=== PATIENT | male | born 1995 | race African-American/Black ===

== ENCOUNTER 2024-08-05 10:02 | Emergency (ER) | payer OTHER, SELFPAY ==
[2024-08-05 10:09] VITALS: BP 112/50; PULSE 69; RESP 18; TEMP 36.4; O2SAT 98; BMI 34.3
--- NOTE | 2024-08-05 11:23 | ED.WOUNDLAC ---
HPI - Wound/Laceration General Chief Complaint: Wound/Laceration Stated Complaint: Work injury last week Time Seen by Provider: 08/05/24 10:30 Source: patient and RN notes reviewed Mode of arrival: ambulatory Limitations: no limitations History of Present Illness ED Provider: Court Webster PA-C HPI narrative: This is a 28-year-old male who presents emergency department for wound check. States that he had a laceration sustained by accidental incident. 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 He was seen at an urgent care where they placed 5 sutures. Patient states that initially after the incident he did have some tingling into his finger, which he attributed to wrapping his hand and gauze. He states that this resolved once he was seen at urgent care. He states that 2 days later he developed some tingling sensation that starts at the wound and extends distally down into the tip of his left 2nd digit. Patient was not placed on antibiotics. He denies any increased pain. No fevers or chills. No drainage from the area. He is right-handed. No other complaints or concerns at this time. Onset (ago): day(s) Place: work Patient tetanus UTD: Yes Context: accidental Associated symptoms: loss of feeling/numbness Related Data Allergies Allergy/AdvReac Type Severity Reaction Status Date / Time omeprazole [From Prilosec] Allergy Unknown Verified 08/05/24 10:13 Review of Systems Review of Systems: Yes all other systems are reviewed and are negative Constitutional: Constitutional: Reports as per [facility] Social History Social History Advance Directives: No Advance Directives Information Provided: Yes Do you have a plan to hurt others: No Plan Physical Exam Vital Signs: Vital Signs: Last Vital Signs Temp 97.6 F 08/05/24 11:39 Pulse 69 08/05/24 11:39 Resp 18 08/05/24 11:39 BP 112/50 L 08/05/24 11:39 Pulse Ox 98 08/05/24 11:39 BMI result Body Mass Index 34.3 Const: General: cooperative, comfortable and no acute distress Orientation/consciousness: patient oriented x3 Limitations: no limitations HEENT: Head: Yes normal to inspection, Yes normocephalic and Yes atraumatic Ears: hearing grossly normal bilaterally General nose exam: Normal external nose present Face and sinus: Yes normal facial exam Mouth: Normal oral and palatal mucosa present, oropharynx normal and moist mucous membranes Throat: Yes posterior oropharynx normal Eyes: General: appearance normal, both eyes and all related structures Eyelids: Yes eyelids normal Conjunctivae: conjunctivae normal Sclerae: sclerae normal Pupils: Equal, round and reactive pupils present EOM: EOMs intact bilaterally Neck: Neck: Yes normal visual inspection, Yes full ROM and Yes no lymphadenopathy Lymphatic: no lymphadenopathy noted Chest: Chest palpation & inspection: normal inspection of the chest Resp: Effort & Inspection: normal respiratory effort and able to speak in complete sentences Auscultation: clear to auscultation bilaterally, no crackles, no rales, no rhonchi and no wheezes Cardio: Rate: regular rate Rhythm: regular rhythm Heart sounds: S1 normal heart sound present and S2 normal heart sound present GI: Inspection: Yes normal to inspection Skin: General skin exam: no rashes or lesions noted Trauma: no lacerations or abrasions Wounds: no wounds Neuro: General: patient oriented x3 and moves all extremities Cranial nerves: Yes Equal, round and reactive pupils present Extrem: Other: Left hand, palmar aspect overlying the 2nd and 3rd metacarpal, there is a 3 cm well-healed laceration noted, with [address], no surrounding erythema or warmth. No drainage. No wound dehiscence. Patient reporting tingling starting from this wound extending distally on the lateral side of the finger, radial aspect. Full ROM of the digit without difficulty. General: Yes normal to inspection Right upper extremity: normal to inspection Left upper extremity: normal to inspection Right lower extremity: normal to inspection Left lower extremity: normal to inspection Medical Decision Making Medical Decision Making MDM Narrative: This is a 28-year-old male who presents emergency department with complaints of paresthesias to left 2nd digit after sustaining a laceration to his hand last week. On arrival, vital signs within normal limits. He is speaking in full sentences under no acute distress. Left hand palmar surface, there is a 3 cm well-healed laceration with [address] No surrounding erythema or warmth. No drainage. No evidence of wound dehiscence. Patient reports he has tingling on the lateral radial aspect of his 2nd digit that starts from the wound and travels distally. He has full range of motion of the digit without difficulty. I discussed with patient that this could be from the laceration, causing a nerve injury therefore it is very important for him to follow-up with the community outreach specialist, advised to call today to make an appointment. Wound does not appear to be infected therefore antibiotics not indicated at this time. He has no fevers or chills. Discussed with patient. Five sutures were removed, patient tolerated procedure well without complications or concerns. Patient understands agrees with plan. Patient stable for discharge Differential Diagnosis Differential Diagnoses: The differential diagnosis associated with the presentation includes Laceration, contusion, nerve entrapment, nerve injury, paresthesias Lab Data MDM Lab Attestation statement: I reviewed the patient's lab results. Radiology Impression Discussion of test interpretation with radiology: I have reviewed the radiologist's reading. External Record Review External record reviewed: Inpatient record, Office record, Outpatient record, Prior outpatient labs, Prior outpatient radiology, Primary care record and Outside ED record Discharge Plan Discharge Clinical Impression: Paresthesia of finger, Visit for suture removal Patient Disposition: Home, Self-Care Instructions: Paresthesia (ED), Stitches Removal (ED) Additional Instructions: You were seen in the emergency department after developing numbness and tingling in your finger from a laceration. You may have injured the nerve therefore it is very important that you follow-up with a hand specialist, call today to make an appointment. We removed 5 sutures from your hand, please keep wound clean and dry, watch for any signs of infection including but not limited to increased redness, drainage, swelling. If any of these occur, please seek emergent care. Referrals: [facility] [Provider Group] Stand Alone Forms: Work/School Release Interventions: ED Discharge Assessment Last Done: 08/05/24 11:39 Discharge Date/Time: 08/05/24 11:39 Print Language: [place]
[2024-08-05 11:39] VITALS: BP 112/50; PULSE 69; RESP 18; TEMP 36.4; O2SAT 98
== END 2024-08-05 11:39 | disposition home or self-care (01) ==
PROVIDERS: Emergency Provider Emergency Medicine Emergency Medical Services
DX: R20.2 Paresthesia of skin (principal); Z48.02 Encounter for removal of sutures
CPT/HCPCS: 99282

== ENCOUNTER 2024-08-24 13:08 | Outpatient (AMB) | payer OTHER, SELFPAY ==
[2024-08-24 13:19] VITALS: BMI 34.3
--- NOTE | 2024-08-24 13:19 | MHC.OFFVIS ---
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 He was seen at an urgent care where they placed 5 sutures. Currently states he is having numbness from his MCP to his DIP. 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 this is a work-related injury. He cut his palm at work, which was sutured at urgent care. He was seen in the ED on 08/05/24 where his sutures were removed and he was referred here. He complains of numbness & tingling in his index finger, extending from his laceration to his fingertip, since his injury. 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 [facility] [place] Social History (Updated 08/24/24 @ 13:36 by Colleen Dooley [facility]) Current occupational status: employed Current occupation: rt hand / behavior therapist Review of Systems Const All systems reviewed & are unremarkable except as noted in HPI and below Physical Exam Vital Signs: BMI result Body Mass Index 34.3 Const General: cooperative, healthy appearing and no acute distress Orientation/consciousness: patient oriented x3 HEENT Head: Yes normocephalic and Yes atraumatic Eyes EOM: EOMs intact bilaterally Resp Effort & Inspection: normal respiratory effort and able to speak in complete sentences Cardio Jugular venous distension: no JVD Skin General skin exam: turgor normal Rashes: no rashes Neuro General: patient oriented x3 Extrem Other: Evaluation of Left Upper Extremity: The patient is alert, oriented, and in no acute distress Neuro: Intact ulnar and radial digital nerve distribution in the index finger from the PIP joint distally. Area of numbness extending from the palmar digital crease laceration along the radial aspect of the index finger to the PIP joint Normal sensation to all other digits Vascular: Cap refill brisk ROM: He can make a fist and extend all his digits Intact FDP & FDS tendon function Skin: He has a well-healed transverse laceration to the radial volar aspect of the index finger at the mid-palmar crease. This measures ~1.5cm in length General: No Ecchymosis. No Erythema or evidence of infection. Psych Appearance: grossly normal Affect: normal affect Attitude: cooperative Assessment & Plan Assessment & Plan (1) Numbness and tingling in left hand: Code(s): R20.0 - Anesthesia of skin; R20.2 - Paresthesia of skin Category: Medical (2) Laceration of left palm: Code(s): S61.412A - Laceration without foreign body of left hand, initial encounter Category: Medical Plan Assessment & Plan: 1. Left index finger numbness Extending from the palmar digital crease laceration to the PIP joint Secondary to laceration Normal sensation in the radial digital nerve distribution distal to the PIP joint Normal sensation in the ulnar digital nerve distribution 2. 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 After that he can return to full duty. He can follow up prn Scribed for Angi Davenport MD by Jb Irving, medical or surgical instrument maker, on 08/24/24 at 1:45 PM, EST. Coding Level of Care Code New Pt Level 3 ([id number]) Diagnoses Numbness and tingling in left hand R20.0; R20.2 Laceration of left palm S61.412A
== END 2024-08-24 13:51 | disposition home or self-care (01) ==
PROVIDERS: Visit Provider Orthopaedic Surgery
DX: R20.0 Anesthesia of skin (principal); R20.2 Paresthesia of skin; S61.412A Laceration without foreign body of left hand, initial encounter
CPT/HCPCS: 99203

== ENCOUNTER → 2024-08-24 13:08 | Outpatient (BNVA) | payer OTHER, SELFPAY | PROVIDERS: Visit Provider Orthopaedic Surgery | DX: S61.412D Laceration without foreign body of left hand, subsequent encounter (principal); R20.0 Anesthesia of skin; R20.2 Paresthesia of skin | CPT/HCPCS: 99202 ==

== ENCOUNTER → 2025-07-28 14:08 | Outpatient (BNVA) | payer SELFPAY | PROVIDERS: Visit Provider Physician Assistant Medical | DX: S61.250A Open bite of right index finger without damage to nail, initial encounter (principal); W50.3XXA Accidental bite by another person, initial encounter; L03.011 Cellulitis of right finger; Z53.20 Procedure and treatment not carried out because of patient's decision for unspecified reasons; Z23 Encounter for immunization | CPT/HCPCS: 90715; 99202 ==

== ENCOUNTER → 2025-07-29 09:03 | Outpatient (BNVA) | payer OTHER, SELFPAY | PROVIDERS: Visit Provider Emergency Medicine | DX: S61.250A Open bite of right index finger without damage to nail, initial encounter (principal); W50.3XXA Accidental bite by another person, initial encounter; Z02.79 Encounter for issue of other medical certificate | CPT/HCPCS: 99213 ==

== ENCOUNTER → 2025-08-01 15:26 | Outpatient (BNVA) | payer OTHER, SELFPAY | PROVIDERS: Visit Provider Emergency Medicine | DX: S61.250A Open bite of right index finger without damage to nail, initial encounter (principal); W50.3XXA Accidental bite by another person, initial encounter; Z02.79 Encounter for issue of other medical certificate | CPT/HCPCS: 99213 ==